=== PATIENT | female | born 1985 | race Caucasian/White ===

== ENCOUNTER 2016-08-28 06:13 | Emergency (ER) | payer OTHER ==
[~2016-08-28 06:13] MED LIST: ALBUTEROL INHALER INH; AMOXICILLIN500 M1 PO; HYDROMET PO; NO MEDICATIONS; PREDNISONE PO; PROMETHAZINE D118 ML PO; SUDAFED PO; ZITHROMAX PO
== END 2016-08-28 10:02 | disposition home or self-care (01) ==
LOC: CED 06:13
DX: S91.115A Laceration without foreign body of left lesser toe(s) without damage to nail, initial encounter (principal); Z23 Encounter for immunization; F17.210 Nicotine dependence, cigarettes, uncomplicated; X58.XXXA Exposure to other specified factors, initial encounter; Y92.009 Unspecified place in unspecified non-institutional (private) residence as the place of occurrence of the external cause
CPT/HCPCS: 12002; 29405; 90471; 90715; 99283